=== PATIENT | female | born 1970 | race Caucasian/White ===

== ENCOUNTER 2018-07-24 20:31 | Emergency (ER) | payer BC ==
[2018-07-24] MEDS ORDERED: METOCLOPRAMIDE HCL INJ/PF 10 MG/2 ML SDV IV ONE ×2 (21:32→23:40)
--- NOTE | 2018-07-24 21:35 | ER Document Report ---
ED Medical Screen (RME) - General Chief Complaint: Headache Stated Complaint: HEADACHE Time Seen by Provider: 07/24/18 21:31 Notes: 48-year-old female with chief complaint of headache and elevated blood pressure readings. States she has noted to have high blood pressure the past 2 days with her provider, states she woke up with a bad headache over the top of her head and has had this headache all day. Mild photophobia. No nausea or vomiting. States it does not feel the same as her typical migraines, but denies that it is worse. Denies fever, neck pain, injury. Takes gabapentin for migraines reportedly, states she takes Topamax as a mood stabilizer, states she took her daughter's nifedipine earlier today. TRAVEL OUTSIDE OF THE [place] IN LAST 30 DAYS: No - Related Data Allergies/Adverse Reactions: morphine [Morphine] Allergy (Verified 11/01/15 11:09) Nausea Past Medical History - Past Medical History Cardiac Medical History: Denies: Hx Coronary Artery Disease, Hx Heart Attack, Hx Hypertension Pulmonary Medical History: Denies: Hx Asthma, Hx Bronchitis, Hx COPD, Hx Pneumonia, Hx Tuberculosis Neurological Medical History: Denies: Hx Cerebrovascular Accident, Hx Seizures Musculoskeltal Medical History: Reports Hx Arthritis - hands Psychiatric Medical History: Reports: Hx Depression - since father Past Surgical History: Reports: Hx Section, Hx Hysterectomy, Hx Orthopedic Surgery - ankle, back, wrist - Immunizations Hx Diphtheria, Pertussis, Tetanus Vaccination: No Physical Exam - Vital signs Vitals: Temp Pulse Resp BP Pulse Ox 98.4 F 112 H 18 170/103 H 97 07/24/18 20:34 07/24/18 20:34 07/24/18 20:34 07/24/18 20:34 07/24/18 20:34 - General General appearance: Anxious - Patient mildly anxious with rapid speech but is otherwise well-appearing In distress: None - Neurological Orientation: AAOx4 [place] Coma Scale Eye Opening: Spontaneous [place] Coma Scale Verbal: Oriented [place] Coma Scale Motor: Obeys Commands Wenceslao Coma Scale Total: 15 Speech: Normal Cranial nerves: Normal Cerebellar coordination: No: Gait ataxia Motor strength normal: LUE, RUE, LLE, RLE Course - Vital Signs Vital signs: Temp Pulse Resp BP Pulse Ox 98.4 F 112 H 18 170/103 H 97 07/24/18 20:34 07/24/18 20:34 07/24/18 20:34 07/24/18 20:34 07/24/18 20:34 Doctor's Discharge - Discharge Referrals: ANDERSON OLEARY MD [Primary Care Provider] - Follow up as needed
[2018-07-24] MEDS ORDERED: DIPHENHYDRAMINE HCL 50 MG/ML VIAL IV ONE (22:30)
--- NOTE | 2018-07-24 22:34 | ER Document Report ---
ED General - General Chief Complaint: Headache Stated Complaint: HEADACHE Time Seen by Provider: 07/24/18 21:31 Notes: Patient is a 48-year-old female presents with complaint of a headache. She says that she woke up with a headache. Headache is a tightness over the temporal aspects of her head. She denies any neck pain. No neck stiffness. No fevers. No vomiting. No photophobia. She does have a history of chronic migraines. She says this headache is different from her migraines and that with her migraines usually has a lot of vomiting. Patient says her blood pressure is also been high now for a week. Her blood pressure started getting high after she ran out of her Adderall. She saw her psychiatrist, Dr. Roman , who did not want to re-prescribe her Adderall but since her blood pressure was high after she ran out. He want her seen by medical doctor to make sure is okay for her to go back on Adderall. No recent fevers or infections. No vomiting. No focal weakness or numbness. No chest pain or shortness of breath. No other complaints at this time. TRAVEL OUTSIDE OF THE [place] IN LAST 30 DAYS: No - Related Data Allergies/Adverse Reactions: morphine [Morphine] Allergy (Verified 11/01/15 11:09) Nausea Past Medical History - Social History Smoking Status: Never Smoker Frequency of alcohol use: None Drug Abuse: None Family History: Reviewed & Not Pertinent - Past Medical History Cardiac Medical History: Denies: Hx Coronary Artery Disease, Hx Heart Attack, Hx Hypertension Pulmonary Medical History: Denies: Hx Asthma, Hx Bronchitis, Hx COPD, Hx Pneumonia, Hx Tuberculosis Neurological Medical History: Denies: Hx Cerebrovascular Accident, Hx Seizures Musculoskeletal Medical History: Reports Hx Arthritis - hands Psychiatric Medical History: Reports: Hx Depression - since father Past Surgical History: Reports: Hx Section, Hx Hysterectomy, Hx Orthopedic Surgery - ankle, back, wrist - Immunizations Hx Diphtheria, Pertussis, Tetanus Vaccination: No Review of Systems - Review of Systems Notes: My Normal Review Basic REVIEW OF SYSTEMS: CONSTITUTIONAL : Denies fever, chills, or sweats. Denies recent illness. EENT: Denies eye, ear, throat, or mouth pain or symptoms. Denies nasal or sinus congestion. CARDIOVASCULAR: Denies chest pain. RESPIRATORY: Denies cough, cold, or chest congestion. Denies shortness of breath, difficulty breathing, or wheezing. GASTROINTESTINAL: Denies abdominal pain. Denies nausea, vomiting, or diarrhea. GENITOURINARY: Denies difficulty urinating, painful urination, burning, frequency, or blood in urine. MUSCULOSKELETAL: Denies neck or back pain or joint pain or swelling. SKIN: Denies rash or skin lesions. NEUROLOGICAL: Denies altered mental status or loss of consciousness. Has a headache. Denies weakness or paralysis or loss of use of either side. Denies problems with gait or speech. Denies sensory or motor loss. PSYCHIATRIC: Has history of ADHD. Usually takes 50 mg of Adderall in the morning and 30 mg in the afternoon. ALL OTHER SYSTEMS REVIEWED AND NEGATIVE. Physical Exam - Vital signs Vitals: Temp Pulse Resp BP Pulse Ox 98.4 F 112 H 18 170/103 H 97 07/24/18 20:34 07/24/18 20:34 07/24/18 20:34 07/24/18 20:34 07/24/18 20:34 - Notes Notes: General Appearance: Well nourished, alert, cooperative, no acute distress, no obvious discomfort. Well-appearing Vitals: reviewed, See vital signs table. Head: no swelling or tenderness to the head Eyes: PERRL, EOMI, Conjuctiva clear Mouth: No decreasd moisture Neck: Supple, no neck tenderness, No thyromegaly Lungs: No wheezing, No rales, No rhonci, No accessory muscle use, good air exchange bilaterally. Heart: Normal rate, Regular rythm, No murmur, no rub Extremities: strength 5/5 in all extremities, good pulses in all extremities, no swelling or tenderness in the extremities, no edema. Skin: warm, dry, appropriate color, no rash Neuro: speech clear, oriented x 3, normal affect, responds appropriately to questions. Cranial nerves II through XII are intact. Distal sensation intact. Patient moves all extremities without difficulty. Distal sensation intact. Course - Re-evaluation Re-evalutation: 07/25/18 01:48 Patient says she still had headache after the Benadryl and Reglan. I therefore gave her Toradol and Decadron is that this is helped significantly however she still has some residual headache. I asked her about morphine as its in her allergy list. Patient says she is never been allergic to morphine and is unsure what sent her allergy list. I will give her a very small dose of Dilaudid to see if this takes away the remainder of her headache. 07/25/18 05:37 Patient was anxious but not seem to have a lot of pain. She is awake and alert. She is no photophobia. She was acting appropriately except for a little bit anxious. I suspect her high blood pressure and headache are a result of her stopping her Adderall and likely having withdrawal from not being on this. She is actually on fairly consistent dosages as she takes it twice a day and takes it regularly. Her high blood pressure did not start until after she ran out of her medication and of course her blood pressure continued to gradually truly worsen and then she developed a headache today. Thinks unlikely she has subarachnoid hemorrhage. CT scan was ordered by triage provider. This was negative. Patient does not have any neck pain. She does not have any posterior head pain. She has no neck stiffness. She has no focal neurologic deficits. Headache presentation is not really consistent with that of subarachnoid hemorrhage. I feel the patient is safe to be discharged home at this time. I represcribed her Adderall for her. Her blood pressure improved after treatment here. She will be placed back on her Adderall. I informed her that if she still has recurrent headaches or still has recurrent high blood pressure after restarting her Adderall then she should return to the ER for reevaluation. Patient agrees with plan will be discharged home. Dictation of this chart was performed using voice recognition software; therefore, there may be some unintended grammatical errors. - Vital Signs Vital signs: Temp Pulse Resp BP Pulse Ox 98.3 F 73 16 136/83 H 99 07/25/18 04:04 07/25/18 04:04 07/25/18 04:04 07/25/18 04:04 07/25/18 04:04 Discharge - Discharge Clinical Impression: Headache Qualifiers: Headache type: unspecified Headache chronicity pattern: unspecified pattern Intractability: not intractable Qualified Code(s): R51 - Headache Condition: Good Disposition: HOME, SELF-CARE Additional Instructions: Please take your medications as prescribed. I suspect your high blood pressure is a result of a stress response from your body due to being off your adderall. please start taking your Adderall again. Please return to the ER fore reevaluation if you continue to have recurrent headaches and continue to have high blood pressure despite being back on your Adderall. Use the combination of the 30mg and 20mg Adderall tablets to take 50mg in the morning and 30mg in the afternoon. Prescriptions: Dextroamphetamine/Amphetamine [Adderall 20 mg Tablet] 20 mg PO ASDIR #7 tablet Dextroamphetamine/Amphetamine [Adderall 30 mg Tablet] 30 mg PO ASDIR PRN #14 tablet PRN Reason: Forms: Return to Work Referrals: ANDERSON OLEARY MD [EMERITUS] - 07/28/18
--- NOTE | 2018-07-24 22:35 | RADIOLOGY REPORT (SQ) ---
EXAM DESCRIPTION: CT HEAD WITHOUT IV CONTRAST COMPLETED DATE/TME: 07/24/2018 21:31 CLINICAL HISTORY: 48 years, Female, headache, hypertension COMPARISON: None. TECHNIQUE: 200 Images stored on PACS. All CT scanners at this facility use dose modulation, iterative reconstruction, and/or weight based dosing when appropriate to reduce radiation dose to as low as reasonably achievable (ALARA). [facility]: Dose Right [facility]: CareDose [facility]: Dose Right [facility]: Teradose 4D [facility]: Protein Forest LIMITATIONS: None. FINDINGS: The globes are intact. The paranasal sinuses show mild mucosal thickening of the maxillary sinuses bilaterally. No displaced or depressed skull fracture. No intra or extra-axial hemorrhage. CT is limited for evaluation of acute infarct. No CT evidence for large or territorial acute infarct. No mass or midline shift. IMPRESSION: Negative for acute intracranial abnormality TECHNICAL DOCUMENTATION: Quality ID # [id number]: Final reports with documentation of one or more dose reduction techniques (e.g., Automated exposure control, adjustment of the mA and/or kV according to patient size, use of iterative reconstruction technique) copyright 2011 [employer]- All Rights Reserved
[2018-07-25] MEDS ORDERED: DEXAMETHASONE SOD PHOS INJ 10 MG/1 ML VIAL IV ONE (00:43)
[2018-07-25] MEDS ORDERED: KETOROLAC TROMETHAMINE INJ/PF 30 MG/1 ML SDV IV ONE (00:43)
[2018-07-25] MEDS ORDERED: HYDROMORPHONE HCL INJ/PF 2 MG/ML AMPULE IV ONE (01:48)
[2018-07-25 04:05] VITALS: BP 136/83
== END 2018-07-25 04:05 | disposition home or self-care (01) ==
LOC: ER 20:31
DX: R51 Headache (principal); F90.9 Attention-deficit hyperactivity disorder, unspecified type; T43.626A Underdosing of amphetamines, initial encounter; Z91.128 Patient's intentional underdosing of medication regimen for other reason; Z91.14 Patient's other noncompliance with medication regimen; Z86.69 Personal history of other diseases of the nervous system and sense organs; I10 Essential (primary) hypertension
CPT/HCPCS: 99284; 96374; 96375; 70450; J1200; J1885; J2765; J1170; J1100